=== PATIENT | female | born 1995 | race Caucasian/White ===

== ENCOUNTER 2016-11-02 09:20 | Emergency (ER) | payer OTHER ==
[2016-11-02 09:08] LABS: INFLUENZA A NEG (NEG); INFLUENZA B NEG (NEG)
[~2016-11-02 09:20] MED LIST: AMOXICILLIN875 MG PO; DAYQUIL; FLEXERIL10 MG; IBUPROFEN; IBUPROFEN600 MG PO; IBUPROFEN800 MG PO; NAPROSYN-EC500 MG; NO MEDICATIONS; NORFLEX100 M1 PO; NYQUIL D COLD295 M1; VOLTAREN75 MG PO; ZITHROMAX PO
== END 2016-11-02 09:38 | disposition home or self-care (01) ==
LOC: SED 09:20
PROVIDERS: Emergency Medicine
DX: J06.9 Acute upper respiratory infection, unspecified (principal); Z88.2 Allergy status to sulfonamides
CPT/HCPCS: 87651; 87804; 99282